=== PATIENT | female | born 1950 | race Caucasian/White ===

== ENCOUNTER → 2024-08-18 08:00 | Outpatient (REF) | payer OTHER, SELFPAY | LOC: HWRAD 08:00 | PROVIDERS: ATTENDING PHYSICIAN Family Medicine; OTHER PHYSICIAN Internal Medicine Gastroenterology; REFERRING PHYSICIAN Surgery | DX: R91.1 Solitary pulmonary nodule (principal); R31.0 Gross hematuria | CPT/HCPCS: 71250; 74178; Q9967 ==

== ENCOUNTER 2024-10-27 06:11 | Day surgery (SDC) | payer OTHER, SELFPAY ==
[2024-10-27 07:09] VITALS: BMI 28.9
[2024-10-27 07:10] VITALS: BMI 28.9
[2024-10-27 07:11] VITALS: BP 165/91
[2024-10-27 08:50] VITALS: BP 105/64
[2024-10-27 09:05] VITALS: BP 132/75
[2024-10-27 09:20] VITALS: BP 166/99
== END 2024-10-27 09:33 | disposition home or self-care (01) ==
LOC: SDS 06:11
PROVIDERS: ATTENDING PHYSICIAN Internal Medicine Gastroenterology
PROC: BD47ZZZ Ultrasonography of Gastrointestinal Tract (ICD-10-PCS; 2024-10-27)
PROC: 0DJ08ZZ Inspection of Upper Intestinal Tract, Via Natural or Artificial Opening Endoscopic (ICD-10-PCS; 2024-10-27)
PROC: 0DB68ZX Excision of Stomach, Via Natural or Artificial Opening Endoscopic, Diagnostic (ICD-10-PCS; 2024-10-27)
DX: K21.00 Gastro-esophageal reflux disease with esophagitis, without bleeding (principal); K44.9 Diaphragmatic hernia without obstruction or gangrene; K31.89 Other diseases of stomach and duodenum
CPT/HCPCS: 43237; 43239; 88305; 88342